=== PATIENT | female | born 1980 | race Caucasian/White ===

== ENCOUNTER 2017-02-19 23:46 | Emergency (ER) | payer SELFPAY ==
[~2017-02-19] VITALS: Ht 160 cm; Wt 70.0 kg
[~2017-02-19 23:46] MED LIST: METR250 PO; PERC5TAB12 PO; ZOFR4TAB3 SL
[2017-02-19 23:48] VITALS: BP 142/84; PULSE 78; RESP 15; TEMP 99; O2SAT 100
--- NOTE | 2017-02-20 00:02 | PD ---
HPI Chief Complaint: Abdominal Pain Time Seen by Provider: 00:02 Travel History International Travel<30 days: No Contact w/Intl Traveler<30days: No Traveled to known affect area: No History of Present Illness HPI 36-year-old female came to the emergency room with history of lower abdominal pain. She was seen at [facility] emergency room for this. She had a CAT scan done which showed ovarian cyst. Blood test was done and the ER physician sent her to the emergency room for ultrasound and rule out ovarian torsion. Patient received IV Dilaudid and IV Toradol during the time she was in [place]. They drove to the emergency room here. Patient says she still in pain and is requesting pain medication. Patient has been in the emergency room at [facility] multiple times. She says she does not have a primary care or a [facility] specialist. Vital signs were within normal limits. [facility] Past Medical History Narrative Medical List of her past medical, surgical, social and family history was reviewed from the nursing note. Hx Anticoagulant Therapy: No Blood Disorders: No Cancer: No Cardiovascular Problems: No Chemotherapy: No Cerebrovascular Accident: No Diabetes: No Diminished Hearing: No Endocrine: No Gastrointestinal Disorders: No Genitourinary: Yes Immune Disorder: No Kidney Stones: Yes Musculoskeletal: No Neurologic: No Psychiatric: No Reproductive: No Respiratory: No Radiation Therapy: No ?: Not LMP: 02/03/17 : 1 Para: 1 Miscarriage: 0 : 0 Past Surgical History AICD: No Arteriovenous Shunt: No Insulin Pump: No Joint Replacement: No Pacemaker: No Tonsillectomy: Yes (T/A) Other Surgery: Yes (LITHOTRYPSY) Social History Alcohol Use: No Tobacco Use: Yes (1/2 PPD) Substance Use: Yes (marijuana at night) Allergies-Medications (Allergen,Severity, Reaction): Coded Allergies: tramadol (Unverified Allergy, Intermediate, HEADACHE, 02/19/17) Comments List of allergies reviewed from the nursing note. Reported Meds & Prescriptions Reported Meds & Active Scripts Active Percocet (Oxycodone-Acetaminophen) 5-325 mg Tab 1 Tab PO Q6H PRN Zofran Odt (Ondansetron Odt) 4 Mg Tab 4 Mg SL Q8HR PRN Narrative Medication List of her home medications reviewed from the nursing note. Review of Systems Except as stated in HPI: all other systems reviewed are Neg Physical Exam Narrative GENERAL: Awake, alert, moderate distress SKIN: Focused skin assessment warm/dry. HEAD: Atraumatic. Normocephalic. EYES: Pupils equal and round. No scleral icterus. No injection or drainage. ENT: No nasal bleeding or discharge. Mucous membranes pink and moist. NECK: Trachea midline. No JVD. CARDIOVASCULAR: Regular rate and rhythm. No murmur appreciated. RESPIRATORY: No accessory muscle use. Clear to auscultation. Breath sounds equal bilaterally. GASTROINTESTINAL: Abdomen soft, non-tender, nondistended. Hepatic and splenic margins not palpable. MUSCULOSKELETAL: No obvious deformities. No clubbing. No cyanosis. No edema. NEUROLOGICAL: Awake and alert. No obvious cranial nerve deficits. Motor grossly within normal limits. Normal speech. PSYCHIATRIC: Appropriate mood and affect; insight and judgment normal. Data Data Last Documented VS Orders Orders Us Pelvis Comp W Doppler (02/20/17 ) Acetamin-Hydrocod 325-5 Mg ([place] 5-325 (02/20/17 01:00) MDM Medical Decision Making Medical Screen Exam Complete: Yes Emergency Medical Condition: Yes Medical Record Reviewed: Yes Differential Diagnosis Rule out ovarian torsion Narrative Course 1:04 AM the ultrasound was done and shows good flow to both ovaries. She does have an ovarian cyst that is about 2.4 cm. No free fluid in the cul-de-sac. Given her pain still patient will be given to by mouth hydrocodone's. I will discharge her home. Procedures EKG Prior to Arrival: No Diagnosis Primary Impression: Chronic pelvic pain in female Referrals: Primary Care Physician Disposition: 01 DISCHARGE HOME Condition: Stable Cinda Berry MD Feb 20, 2017 00:02
[2017-02-20] MEDS ORDERED: ACETAMINOPHEN/HYDROcodone 325 MG/5 MG TAB PO ONE (01:00)
--- NOTE | 2017-02-20 01:10 | RADRPT ---
EXAM DATE/TIME: 02/20/2017 00:32 [facility] COMPARISON: CT ABDOMEN & PELVIS W CONTRAST, February 19, 2017, 20:46. INDICATIONS : Torsion. MEDICAL HISTORY : Renal lithiasis. Substance use. SURGICAL HISTORY : Tonsillectomy. Lithotripsy. ENCOUNTER: Initial ACUITY: 1 day PAIN SCORE: 7/10 LOCATION: Bilateral pelvis MEASUREMENTS: UTERUS: 7.5 x 6.2 x 4.2 cm ENDOMETRIAL STRIPE: 14 mm RIGHT OVARY: 3.1 x 3.5 x 2.9 cm LEFT OVARY: 2.7 x 2.1 x 1.8 cm FINDINGS: UTERUS: The myometrium has homogeneous echotexture without mass. RIGHT OVARY: Cyst again noted, by ultrasound measures approximately 19 x 21 x 18 mm. No torsion. LEFT OVARY: Ovary contains no mass or significant cystic lesion.No torsion. MISCELLANEOUS: No free fluid. CONCLUSION: Right ovarian cyst. No torsion. Primitivo Stover MD on February 20, 2017 at 1:06 Board Certified Radiologist. This report was verified electronically.
[2017-02-20] MEDS ORDERED: PERC5TAB12 PO (01:57)
[2017-03-04] MEDS ORDERED: NAPR500 PO (14:16)
[2017-03-04] MEDS ORDERED: PERC5TAB12 PO (14:29)
[2017-03-10] MEDS ORDERED: DICY10 PO (00:42)
[2017-03-10] MEDS ORDERED: HYDR-3534 PO (12:49)
== END 2017-02-20 01:20 | disposition home or self-care (01) ==
LOC: NEPC 23:46
DX: R10.2 Pelvic and perineal pain (principal); G89.29 Other chronic pain
CPT/HCPCS: 76856; 93975